=== PATIENT | female | born 1950 | race Caucasian/White ===

== ENCOUNTER 2017-09-02 05:32 | Inpatient (IN) | payer MEDICARE, OTHER ==
--- NOTE | 2017-09-02 06:04 | ED ---
General Adult HPI - General Chief complaint: Shortness of Breath Stated complaint: SOB Time Seen by Provider: 09/02/17 05:35 Source: patient, family, RN notes reviewed Mode of arrival: ambulatory Limitations: no limitations - History of Present Illness Initial comments: This a 67-year-old female who presents emergency Department complaining of cold- like symptoms last few days however today when she went to bed and laid down she had significant chest pressure and associated difficulty breathing. Patient states when she got up and out of bed the chest pressure seemed to relieve relatively quickly but the difficulty breathing last for at least 15 minutes. Patient states this is what brought her into the hospital not the cold -like symptoms. Patient denies any fever chills. Patient states she has had quite a bit of congestion. Patient denies any abdominal pain patient denies nausea vomiting diarrhea. Patient denies any headache. Patient denies any lightheadedness dizziness or nursing about so. - Related Data Home Medications Medication Instructions Recorded Confirmed Sertraline HCl [Zoloft] 100 mg PO HS 08/05/14 09/02/17 Simvastatin [Zocor] 20 mg PO HS 08/05/14 09/02/17 rOPINIRole HCL [Requip] 1 mg PO HS 08/05/14 09/02/17 Doxycycline [Vibramycin] 50 mg PO HS 09/02/17 09/02/17 Levothyroxine Sodium [Synthroid] 112 mcg PO HS 09/02/17 09/02/17 NIFEdipine [Procardia XL] 60 mg PO HS 09/02/17 09/02/17 Allergies Allergy/AdvReac Type Severity Reaction Status Date / Time adhesive AdvReac Rash/Hives Verified 09/02/17 08:52 Review of Systems ROS Statement: Those systems with pertinent positive or pertinent negative responses have been documented in the HPI. ROS Other: All systems not noted in ROS Statement are negative. Past Medical History Past Medical History: Hypertension History of Any Multi-Drug Resistant Organisms: None Reported Past Surgical History: Appendectomy, Orthopedic Surgery, Tonsillectomy Past Psychological History: No Psychological Hx Reported Smoking Status: Never smoker Past Alcohol Use History: None Reported Past Drug Use History: None Reported - Past Family History Mother Additional Family Medical History / Comment(s): colon CA General Exam - General Exam Comments Initial Comments: GENERAL: Patient is well-developed and well-nourished. Patient is nontoxic and well- hydrated and is in mild distress. ENT: Neck is soft and supple. No significant lymphadenopathy is noted. Oropharynx is clear. Moist mucous membranes. Neck has full range of motion without eliciting any pain. EYES: The sclera were anicteric and conjunctiva were pink and moist. Extraocular movements were intact and pupils were equal round and reactive to light. Eyelids were unremarkable. PULMONARY: Unlabored respirations. Good breath sounds bilaterally. No audible rales rhonchi or wheezing was noted. CARDIOVASCULAR: There is a regular rate and rhythm without any murmurs gallops or rubs. ABDOMEN: Soft and nontender with normal bowel sounds. No palpable organomegaly was noted. There is no palpable pulsatile mass. SKIN: Skin is clear with no lesions or rashes and otherwise unremarkable. NEUROLOGIC: Patient is alert and oriented x3. Cranial nerves II through XII are grossly intact. Motor and sensory are also intact. Normal speech, volume and content. Symmetrical smile. MUSCULOSKELETAL: Normal extremities with adequate strength and full range of motion. No lower extremity swelling or edema. No calf tenderness. LYMPHATICS: No significant lymphadenopathy is noted PSYCHIATRIC: Normal psychiatric evaluation. Limitations: no limitations Course Vital Signs 09/02/17 09/02/17 09/02/17 05:33 07:10 08:23 Temperature 97.6 F 99.2 F Pulse Rate 99 90 87 Respiratory 18 16 18 Rate Blood Pressure 174/89 143/84 138/72 O2 Sat by Pulse 95 97 93 L Oximetry 09/02/17 09/02/17 09:00 14:20 Temperature 98.2 F Pulse Rate 89 94 Respiratory 16 16 Rate Blood Pressure 172/92 140/83 O2 Sat by Pulse 93 L 95 Oximetry Medical Decision Making - Medical Decision Making EKG shows normal sinus rhythm at 90 bpm GA interval is on a 58 QRSs 82 QT interval 400 QTC is 489. Patient's EKG shows no ST segment elevation or depression or T wave abnormalities are noted. Patient had an elevated d-dimer so I ordered a CAT scan. Dr. Anand will be taking over care of this patient at 7 AM - Lab Data Result diagrams: 09/03/17 06:32 09/03/17 06:32 Lab Results 09/02/17 09/02/17 09/02/17 Range/Units 05:55 05:55 05:55 WBC 5.6 (3.8-10.6) k/uL RBC 4.69 (3.80-5.40) m/uL Hgb 13.3 (11.4-16.0) gm/dL Hct 40.1 (34.0-46.0) % MCV 85.5 (80.0-100.0) fL MCH 28.4 (25.0-35.0) pg MCHC 33.2 (31.0-37.0) g/dL RDW 13.9 (11.5-15.5) % Plt Count 251 (150-450) k/uL Neutrophils % 69 % Lymphocytes % 18 % Monocytes % 7 % Eosinophils % 3 % Basophils % 1 % Neutrophils # 3.9 (1.3-7.7) k/uL Lymphocytes # 1.0 (1.0-4.8) k/uL Monocytes # 0.4 (0-1.0) k/uL Eosinophils # 0.2 (0-0.7) k/uL Basophils # 0.0 (0-0.2) k/uL PT (9.0-12.0) sec INR (<1.2) APTT (22.0-30.0) sec D-Dimer (<0.60) mg/L FEU Sodium 143 (137-145) mmol/L Potassium 4.2 (3.5-5.1) mmol/L Chloride 103 (98-107) mmol/L Carbon Dioxide 27 (22-30) mmol/L Anion Gap 13 mmol/L BUN 18 H (7-17) mg/dL Creatinine 0.68 (0.52-1.04) mg/dL Est GFR (MDRD) Af Amer >60 (>60 ml/min/1.73 sqM) Est GFR (MDRD) Non-Af >60 (>60 ml/min/1.73 sqM) Glucose 99 (74-99) mg/dL Calcium 9.2 (8.4-10.2) mg/dL Magnesium 2.0 (1.6-2.3) mg/dL Total Bilirubin 0.4 (0.2-1.3) mg/dL AST 27 (14-36) U/L ALT 33 (9-52) U/L Alkaline Phosphatase 119 (38-126) U/L Total Creatine Kinase 101 (30-135) U/L CK-MB (CK-2) 0.8 (0.0-2.4) ng/mL CK-MB (CK-2) Rel Index 0.8 Troponin I <0.012 (0.000-0.034) ng/mL NT-Pro-B Natriuret Pep pg/mL Total Protein 7.6 (6.3-8.2) g/dL Albumin 4.4 (3.5-5.0) g/dL 09/02/17 09/02/17 Range/Units 05:55 05:55 WBC (3.8-10.6) k/uL RBC (3.80-5.40) m/uL Hgb (11.4-16.0) gm/dL Hct (34.0-46.0) % MCV (80.0-100.0) fL MCH (25.0-35.0) pg MCHC (31.0-37.0) g/dL RDW (11.5-15.5) % Plt Count (150-450) k/uL Neutrophils % % Lymphocytes % % Monocytes % % Eosinophils % % Basophils % % Neutrophils # (1.3-7.7) k/uL Lymphocytes # (1.0-4.8) k/uL Monocytes # (0-1.0) k/uL Eosinophils # (0-0.7) k/uL Basophils # (0-0.2) k/uL PT 9.7 (9.0-12.0) sec INR 1.0 (<1.2) APTT 25.8 (22.0-30.0) sec D-Dimer 0.92 H (<0.60) mg/L FEU Sodium (137-145) mmol/L Potassium (3.5-5.1) mmol/L Chloride (98-107) mmol/L Carbon Dioxide (22-30) mmol/L Anion Gap mmol/L BUN (7-17) mg/dL Creatinine (0.52-1.04) mg/dL Est GFR (MDRD) Af Amer (>60 ml/min/1.73 sqM) Est GFR (MDRD) Non-Af (>60 ml/min/1.73 sqM) Glucose (74-99) mg/dL Calcium (8.4-10.2) mg/dL Magnesium (1.6-2.3) mg/dL Total Bilirubin (0.2-1.3) mg/dL AST (14-36) U/L ALT (9-52) U/L Alkaline Phosphatase (38-126) U/L Total Creatine Kinase (30-135) U/L CK-MB (CK-2) (0.0-2.4) ng/mL CK-MB (CK-2) Rel Index Troponin I (0.000-0.034) ng/mL NT-Pro-B Natriuret Pep 49 pg/mL Total Protein (6.3-8.2) g/dL Albumin (3.5-5.0) g/dL Disposition Disposition: ADMITTED IP TO THIS HOSP
[2017-09-02 06:14] LABS: Basophils % (A) 1 %; Eosinophils # (A) 0.2 k/uL (0-0.7); Eosinophils % (A) 3 %; HCT 40.1 % (34.0-46.0); HGB 13.3 gm/dL (11.4-16.0); Lymphocytes % (A) 18 %; MCH 28.4 pg (25.0-35.0); MCHC 33.2 g/dL (31.0-37.0); MCV 85.5 fL (80.0-100.0); Mean Platelet Volume 6.6; Monocytes # (A) 0.4 k/uL (0-1.0); Monocytes % (A) 7 %; Neutrophils # (A) 3.9 k/uL (1.3-7.7); Neutrophils % (A) 69 %; Platelet Count 251 k/uL (150-450); RBC 4.69 m/uL (3.80-5.40); RDW 13.9 % (11.5-15.5); WBC 5.6 k/uL (3.8-10.6)
[2017-09-02 06:23] LABS: ALT 33 U/L (9-52); AST 27 U/L (14-36); Albumin 4.4 g/dL (3.5-5.0); Alkaline Phosphatase 119 U/L (38-126); Anion Gap 13 mmol/L; Blood Urea Nitrogen 18 mg/dL (7-17); Calcium 9.2 mg/dL (8.4-10.2); Carbon Dioxide 27 mmol/L (22-30); Chloride 103 mmol/L (98-107); Glucose 99 mg/dL (74-99); Potassium 4.2 mmol/L (3.5-5.1); Sodium 143 mmol/L (137-145); Total Bilirubin 0.4 mg/dL (0.2-1.3); Total Protein 7.6 g/dL (6.3-8.2)
[2017-09-02 06:25] LABS: D-Dimer 0.92 mg/L FEU (<0.60); Partial Thromboplastin Time 25.8 sec (22.0-30.0); Prothrombin Time 9.7 sec (9.0-12.0)
[2017-09-02 06:34] LABS: Creatine Kinase 101 U/L (30-135)
--- NOTE | 2017-09-02 06:47 | XR ---
EXAM: XR Chest, 2 Views CLINICAL HISTORY: ITS.REASON XR Reason: difficulty breathing TECHNIQUE: Frontal and lateral views of the chest. COMPARISON: CT chest dated 09/23/2014. FINDINGS: Lungs: Questionable mildly prominent perihilar opacities may represent minimal congestion. The lungs are otherwise clear. Pleural space: Unremarkable. No pneumothorax. Heart: Unremarkable. No cardiomegaly. Mediastinum: See above. Bones/joints: Mild degenerative changes of the thoracic spine. IMPRESSION: Questionable mildly prominent perihilar opacities may represent minimal congestion.
[2017-09-02 06:48] LABS: Creatine Kinase MB 0.8 ng/mL (0.0-2.4); Troponin I <0.012 ng/mL (0.000-0.034)
[2017-09-02] MEDS ORDERED: RX INFO: IV CONTRAST WAS GIVEN 1 EACH MISC MISCELLANE PRN (06:51)
--- NOTE | 2017-09-02 07:34 | CT ---
CT CHEST FOR PULMONARY EMBOLISM. EXAMINATION TYPE: CT chest angio for PE DATE OF EXAM: 09/02/2017 INDICATION: SOB, cough, elevated d dimer, pain CT DLP: 768.9 mGycm, Automated exposure control for dose reduction was used. CONTRAST: Patient injected with 100 mL of Omnipaque 350. COMPARISON: NONE TECHNIQUE: CT of the chest is performed on a spiral scan at 2 mm thick sections. Study is performed with intravenous contrast timed for evaluation for pulmonary embolism. This will limit additional po rtions of the evaluation. 3-D MIP images reconstructed by the technologist are reviewed on the compu ter in the coronal and sagittal planes. FINDINGS: Contrast timing is suboptimal causing some limitation small distal pulmonary emboli. No persistent filling defects are evident to suggest an acute pulmonary embolism. No mediastinal or hilar adenopathy enlarged by CT criteria is evident. The ascending aorta diameter at the level of the main pulmonary artery is 3.7 cm. The main pulmonary artery diameter at the bifur cation is 2.8 cm. There is a patchy infiltrate within the right middle lobe. Correlate for pneumonia. There is streak o pacity in the posterior left base. Correlate for atelectasis or pneumonia. Limited CT section through the upper abdomen are unremarkable. IMPRESSIONS: 1. No acute pulmonary emboli. There is some limitation due to contrast timing and smaller pulmonary e mboli may not be appreciated. 2. Patchy infiltrate within the right middle lobe and some streak opacity in the left lower lobe. Cor relate for pneumonia.
[2017-09-02] MEDS ORDERED: HEPARIN SODIUM,PORCINE 5,000 UNIT/ML 1 ML VIAL IV PRN (08:20)
[2017-09-02] MEDS ORDERED: MORPHINE SULFATE 4 MG/ML SYRINGE IV PRN (08:20)
[2017-09-02] MEDS ORDERED: HEPARIN SODIUM,PORCINE 5,000 UNIT/ML 1 ML VIAL IV ONE (08:20)
[2017-09-02] MEDS ORDERED: NITROGLYCERIN SL TABS 0.4 MG TAB SUBLINGUAL PRN (08:20)
[2017-09-02] MEDS ORDERED: ASPIRIN 81 MG PO STA (08:20)
[2017-09-02] MEDS ORDERED: PNEUMONIA PROTOCOL UTILIZED 1 EACH MISC PO PRN (08:22)
[2017-09-02] MEDS ORDERED: IPRATROPIUM-ALBUTEROL 3 ML NEB INHALATION PRN (08:22)
[2017-09-02] MEDS ORDERED: LEVOFLOXACIN 750MG-D5W PMX 750 MG in DEXTROSE/WATER 1 150ML.BAG IVPB STA (08:22)
[2017-09-02] MEDS ORDERED: HEPARIN SOD,PORK IN 0.45% NACL 25,000 UNIT in 0.45% NACL 1 500ML.BAG IV SCH (08:30)
[2017-09-02] MEDS: SODIUM CHLORIDE 0.9% 1,000 ML IV SCH (08:42)
[2017-09-02] MEDS ORDERED: ACETAMINOPHEN TAB 500 MG TAB PO STA (09:29)
[2017-09-02 12:07] LABS: Creatine Kinase 90 U/L (30-135)
[2017-09-02 12:21] LABS: Creatine Kinase MB 0.7 ng/mL (0.0-2.4); Troponin I <0.012 ng/mL (0.000-0.034)
[2017-09-02 15:44] VITALS: BMI 52.9
[2017-09-02 18:04] LABS: Creatine Kinase 97 U/L (30-135)
[2017-09-02 18:17] LABS: Creatine Kinase MB 0.8 ng/mL (0.0-2.4); Troponin I <0.012 ng/mL (0.000-0.034)
[2017-09-02] MEDS ORDERED: FUROSEMIDE 10 MG/ML 2 ML VIAL IV ONE (18:54)
[2017-09-02] MEDS ORDERED: FUROSEMIDE 10 MG/ML 4 ML VIAL IV STA (19:01)
[2017-09-02] MEDS: ACETAMINOPHEN TAB 325 MG TAB PO PRN (20:01)
[2017-09-02] MEDS: ATORVASTATIN 10 MG TAB PO SCH (20:25)
[2017-09-02] MEDS: DOXYCYCLINE 50 MG CAP PO SCH (20:25)
[2017-09-02] MEDS: SERTRALINE 100 MG TAB PO SCH (20:25)
[2017-09-02] MEDS: LEVOTHYROXINE 112 MCG TAB PO SCH (20:25)
[2017-09-02] MEDS: HEPARIN SODIUM,PORCINE 5,000 UNIT/ML 1 ML VIAL SQ SCH (20:26)
[2017-09-02] MEDS: MELATONIN 3 MG TABLET PO SCH (21:45)
--- NOTE | 2017-09-02 23:05 | P.HPIM ---
History of Present Illness H&P Date: 09/02/17 Chief Complaint: Chest tightness and shortness of breath Patient is a 67-year-old female with known history of hypertension, hyperlipidemia and hypothyroidism came to ER with complaints of chest congestion and cold-like symptoms started around 2 AM in the morning since then she's been having constant chest pressure associated with difficulty in breathing. Patient was also having severe shortness of breath when she was going to the bathroom. Chest tightness lasted for about 15 minutes. Otherwise denied any fever or chills. Patient says that she was having cold-like symptoms yesterday evening. Otherwise patient denied any pain radiation. No nausea vomiting or abdominal pain. No headache or dizziness or lightheadedness. No orthopnea no PND. Denied any leg swelling. Chest x-ray showed prominent perihilar opacities with possible congestion D-dimer is slightly elevated CTA is negative for any pulmonary embolism BNP 49 Review of Systems Constitutional: Patient denies any fever or chills . No generalized weakness or weight loss. Abdomen: Patient denied nausea vomiting and diarrhea and abdominal pain. Cardiovascular: Does have chest tightness and shortness of breath and congestion. No palpitations no leg swelling Respiratory: patient denied any cough is from production. No shortness of breath Neurologic: Patient denied any numbness or tingling headache. Musculoskeletal: Patient denies any complaints of joint swelling or deformity. Skin: Negative Psychiatric: Negative Endocrine: No heat or cold intolerance. No recent weight gain. Genitourinary: No dysuria or hematuria. All other 14 point ROS negative except the above Past Medical History Past Medical History: Hyperlipidemia, Hypertension, Thyroid Disorder Additional Past Medical History / Comment(s): rosacea History of Any Multi-Drug Resistant Organisms: None Reported Past Surgical History: Appendectomy, Orthopedic Surgery, Tonsillectomy Additional Past Surgical History / Comment(s): bilateral knee replacement Past Anesthesia/Blood Transfusion Reactions: No Reported Reaction Past Psychological History: No Psychological Hx Reported Smoking Status: Never smoker Past Alcohol Use History: None Reported Past Drug Use History: None Reported - Past Family History Mother Additional Family Medical History / Comment(s): colon CA Medications and Allergies Home Medications Medication Instructions Recorded Confirmed Type Sertraline HCl [Zoloft] 100 mg PO HS 08/05/14 09/02/17 History Simvastatin [Zocor] 20 mg PO HS 08/05/14 09/02/17 History rOPINIRole HCL [Requip] 1 mg PO HS 08/05/14 09/02/17 History Doxycycline [Vibramycin] 50 mg PO HS 09/02/17 09/02/17 History Levothyroxine Sodium [Synthroid] 112 mcg PO HS 09/02/17 09/02/17 History NIFEdipine [Procardia XL] 60 mg PO HS 09/02/17 09/02/17 History Allergies Allergy/AdvReac Type Severity Reaction Status Date / Time adhesive AdvReac Rash/Hives Verified 09/02/17 08:52 Physical Exam Vitals: Vital Signs Temp Pulse Pulse Resp BP BP Pulse Ox 09/02/17 18:16 90 09/02/17 18:05 99.5 F 112 H 18 159/83 90 L 09/02/17 16:15 88 09/02/17 14:33 98.8 F 87 18 148/74 91 L 09/02/17 14:20 98.2 F 94 16 140/83 95 09/02/17 09:00 89 16 172/92 93 L 09/02/17 08:23 87 18 138/72 93 L 09/02/17 07:10 99.2 F 90 16 143/84 97 09/02/17 05:33 97.6 F 99 18 174/89 95 Intake and Output 09/02/17 09/02/17 09/02/17 06:59 14:59 22:59 Other: Weight 127.006 kg 127.006 kg Patient Weight 09/03/17 06:59 Weight 127.006 kg PHYSICAL EXAMINATION: Patient is lying in the bed comfortably, no acute distress, awake alert and oriented.. Patient Does have morbid obesity HEENT: Normocephalic. Neck is supple. Pupils reactive. Nostrils clear. Oral cavity is moist. Ears reveal no drainage. Neck reveals no JVD, carotid bruits, or thyromegaly. CHEST EXAMINATION: Trachea is central. Symmetrical expansion. Patient does have diminished breath sounds basally. Minimal rhonchi at right base. Nonlabored breathing CARDIAC: Normal S1, S2 with no gallops. No murmurs ABDOMEN: Soft. Bowel sounds normal. No organomegaly. No abdominal bruits. Extremities: reveal no edema. No clubbing or cyanosis Neurologically awake, alert, oriented x3 with well-coordinated movements. No focal deficits noted Skin: No rash or skin lesions. Psychiatric: Cooperative. Nonsuicidal Musculoskeletal: No joint swelling or deformity. Normal range of motion. Results CBC & Chem 7: 09/02/17 05:55 09/02/17 05:55 Labs: Abnormal Lab Results - Last 24 Hours (Table) 09/02/17 09/02/17 Range/Units 05:55 05:55 D-Dimer 0.92 H (<0.60) mg/L FEU BUN 18 H (7-17) mg/dL Thrombosis Risk Factor Assmnt - DVT/VTE Prophylaxis DVT/VTE Prophylaxis: Pharmacologic Prophylaxis ordered - Choose All That Apply Any of the Below Risk Factors Present?: Yes Each Factor Represents 1 point: Obesity (BMI >25) Other Risk Factors: Yes Each Risk Factor Represents 2 Points: Age 61-74 years Thrombosis Risk Factor Assessment Total Risk Factor Score: 3 Thrombosis Risk Factor Assessment Level: Moderate Risk Assessment and Plan Assessment: Atypical chest pain. Ruled out acute coronary syndrome Chest congestion and shortness of breath possible due to viral illness Right middle lobe and left lower lobe pneumonia Morbid obesity BMI 52.9 Hypertension Hyperlipidemia Hypothyroidism DVT prophylaxis Plan: Patient will be continued on telemetry monitoring. Serial EKG and troponin negative. BNP is 49. Unlikely patient is having congestive heart failure. Patient will be given Lasix 40 mg IV 1. Will hold IV fluids and continued with the antibiotics in the form of levofloxacin. We will obtain influenza PCR. Continue the home medications and follow up closely. Further recommendations based on the clinical course. Time with Patient: Greater than 30
[2017-09-03] MEDS: SODIUM CHLORIDE 0.9% 1,000 ML IV SCH (04:46)
[2017-09-03] MEDS: ACETAMINOPHEN TAB 325 MG TAB PO PRN (04:47)
[2017-09-03] MEDS: LORATADINE 10 MG TAB PO SCH (07:01)
[2017-09-03 07:04] LABS: Basophils % (A) 1 %; Eosinophils # (A) 0.1 k/uL (0-0.7); Eosinophils % (A) 2 %; HCT 38.9 % (34.0-46.0); HGB 12.7 gm/dL (11.4-16.0); Lymphocytes # (A) 0.8 k/uL (1.0-4.8); Lymphocytes % (A) 20 %; MCHC 32.6 g/dL (31.0-37.0); MCV 88.7 fL (80.0-100.0); Mean Platelet Volume 6.5; Monocytes # (A) 0.3 k/uL (0-1.0); Monocytes % (A) 8 %; Neutrophils # (A) 2.9 k/uL (1.3-7.7); Neutrophils % (A) 67 %; Platelet Count 248 k/uL (150-450); RBC 4.38 m/uL (3.80-5.40); RDW 13.6 % (11.5-15.5); WBC 4.3 k/uL (3.8-10.6)
--- NOTE | 2017-09-03 07:12 | XR ---
EXAMINATION TYPE: XR chest 2V DATE OF EXAM: 09/03/2017 COMPARISON: Chest x-ray and CTA chest from yesterday. HISTORY: Pneumonia progress study. TECHNIQUE: Frontal and lateral views of the chest are obtained. FINDINGS: There there are persistent patchy infiltrates right suprahilar level. More focal small are a of consolidation left lower lobe posteriorly is less well-seen on x-ray. No new focal airspace opac ity, pleural effusion, or pneumothorax is evident. The cardiac silhouette size is within normal limit s. Degenerative changes bilateral shoulders is redemonstrated. IMPRESSION: Persistent patchy right suprahilar infiltrate, posterior left lower lobe infiltrate on C T less well seen. No new infiltrate is evident.
[2017-09-03 07:32] LABS: Anion Gap 11 mmol/L; Blood Urea Nitrogen 8 mg/dL (7-17); Calcium 8.5 mg/dL (8.4-10.2); Carbon Dioxide 28 mmol/L (22-30); Chloride 103 mmol/L (98-107); Cholesterol 145 mg/dL (<200); Glucose 108 mg/dL (74-99); HDL Cholesterol 54 mg/dL (40-60); LDL Cholesterol,Calculated 71 mg/dL (0-99); Potassium 3.7 mmol/L (3.5-5.1); Sodium 142 mmol/L (137-145); Triglycerides 99 mg/dL (<150)
[2017-09-03] MEDS ORDERED: ASPIRIN 325 MG TAB PO SCH (09:00)
[2017-09-03] MEDS ORDERED: LEVOFLOXACIN 750MG-D5W PMX 750 MG in DEXTROSE/WATER 1 150ML.BAG IVPB SCH (09:00)
[2017-09-03] MEDS: HEPARIN SODIUM,PORCINE 5,000 UNIT/ML 1 ML VIAL SQ SCH ×2 (09:32→20:50)
--- NOTE | 2017-09-03 13:31 | P.CRDCN ---
History of Present Illness Consult date: 09/03/17 Consult reason: chest pain, shortness of breath History of present illness: Mrs. Prado is a pleasant 67-year-old female past medical history significant for hypertension and morbid obesity. She denies history of coronary artery disease and has never seen a lorry weigher for any reason. We have been asked to see her in consultation for complaints of chest pain. She states Sunday night into Sunday morning around 0200 she was trying to lay down and get some sleep when she became extremely short of breath. Soon after she developed a pressure on her chest that felt like an elephant sitting on her chest. Once she stood up from bed the pain went away but she remained mildly short of breath for approximately 15 minutes. She also complains of cough and congetsion. She states her has been sick with cough and congestion at home as well. Her shortness of breath has significantly improved she believes to be secondary to oxygen. She feels like once oxygen was applied she felt much better. She is being treated with IV antibiotics for right middle lobe pneumonia. EKG on arrival reveals sinus mechanism with no acute ST or T-wave abnormalities. Chest xray on admission questionable mildly prominent perihilar opacities may represent minimal congestion. Repeat this morning continues to show persistent patchy right superhilar infiltrate with posterior left lower lobe infiltrate. CTA was performed reveals no evidence of PE. Patchy infiltrate within right middle lobe and some streak opacity in the left lower lobe. Correlate for pneumonia. Laboratory data reviewed, hemoglobin 12.7, platelets 248, potassium 3.7, magnesium 2.0, d-dimer 0.92, cardiac enzymes negative 3, proBNP 49, TSH 1.37, LDL 71. Influenza screens negative. Current cardiac medications include nifedipine 60 mg daily and simvastatin 20 mg daily. No old diagnostic cardiac testing to review. Review of Systems At the time of my exam: CONSTITUTIONAL: Denies fever. Denies chills. EYES: Denies blurred vision. Denies vision changes. Denies eye pain. EARS, NOSE, MOUTH & THROAT: Denies headache. Denies sore throat. Denies ear pain. CARDIOVASCULAR: Denies chest pain. Denies shortness of breath. Denies orthopnea. Denies PND. Denies palpitations. RESPIRATORY: Complains of cough. GASTROINTESTINAL: Denies abdominal pain. Denies diarrhea. Denies constipation. Denies nausea. Denies vomiting. MUSCULOSKELETAL: Denies myalgias. INTEGUMENTARY: Denies pruitis. Denies rash. NEUROLOGIC: Denies numbness. Denies tingling. Denies weakness. PSYCHIATRIC: Denies anxiety. Denies depression. ENDOCRINE: Denies fatigue. Denies weight change. Denies polydipsia. Denies polyurina. GENITOURINARY: Denies burning, hematuria or urgency with micturation. HEMATOLOGIC: Denies history of anemia. Denies bleeding. Past Medical History Past Medical History: Hypertension Additional Past Medical History / Comment(s): rosacea History of Any Multi-Drug Resistant Organisms: None Reported Past Surgical History: Appendectomy, Orthopedic Surgery, Tonsillectomy Additional Past Surgical History / Comment(s): bilateral knee replacement Past Anesthesia/Blood Transfusion Reactions: No Reported Reaction Past Psychological History: No Psychological Hx Reported Smoking Status: Never smoker Past Alcohol Use History: None Reported Past Drug Use History: None Reported - Past Family History Mother Additional Family Medical History / Comment(s): colon CA Medications and Allergies Home Medications Medication Instructions Recorded Confirmed Type Sertraline HCl [Zoloft] 100 mg PO HS 08/05/14 09/02/17 History Simvastatin [Zocor] 20 mg PO HS 08/05/14 09/02/17 History rOPINIRole HCL [Requip] 1 mg PO HS 08/05/14 09/02/17 History Doxycycline [Vibramycin] 50 mg PO HS 09/02/17 09/02/17 History Levothyroxine Sodium [Synthroid] 112 mcg PO HS 09/02/17 09/02/17 History NIFEdipine [Procardia XL] 60 mg PO HS 09/02/17 09/02/17 History Loratadine [Claritin] 10 mg PO DAILY tab 09/03/17 Rx Allergies Allergy/AdvReac Type Severity Reaction Status Date / Time adhesive AdvReac Rash/Hives Verified 09/02/17 08:52 Physical Exam Vitals: Vital Signs Temp Pulse Pulse Pulse Resp BP BP 09/03/17 04:00 99.2 F 70 17 155/87 09/03/17 00:00 98.5 F 82 17 135/77 09/02/17 20:00 18 09/02/17 18:16 90 09/02/17 18:05 99.5 F 112 H 18 159/83 09/02/17 16:15 88 09/02/17 14:33 98.8 F 87 18 148/74 09/02/17 14:20 98.2 F 94 16 140/83 09/02/17 09:00 89 16 172/92 Pulse Ox 09/03/17 04:00 90 L 09/03/17 00:00 92 L 09/02/17 20:00 09/02/17 18:16 09/02/17 18:05 90 L 09/02/17 16:15 09/02/17 14:33 91 L 09/02/17 14:20 95 09/02/17 09:00 93 L Intake and Output 09/02/17 09/03/17 09/03/17 22:59 06:59 14:59 Other: Voiding Method Toilet Toilet # Voids 2 3 Weight 127.006 kg Blood pressure 155/87 heart rate 70 afebrile maintaining oxygen saturations on oxygen nasal via cannula GENERAL: This is a 67-year-old female in no apparent distress at the time of my examination. Morbidly obese. HEENT: Head is atraumatic, normocephalic. Pupils are equal, round. Sclerae anicteric. Conjunctivae are clear. Mucous membranes of the mouth are moist. Neck is supple. There is no jugular venous distention. No carotid bruit is heard. LUNGS: Clear to auscultation no wheezes, rales or rhonchi. No chest wall tenderness is noted on palpation or with deep breathing. Diminished b/l. HEART: Regular rate and rhythm without murmurs, rubs or gallops. S1 and S2 heard. ABDOMEN: Soft, nontender. Bowel sounds are heard. No organomegaly noted. EXTREMITIES: No evidence of peripheral edema and no calf tenderness noted. VASCULAR: Radial and dorsalis pedis pulses palpated, no evidence of clubbing. NEUROLOGIC: Patient is awake, alert and oriented x3. Results 09/03/17 06:32 09/03/17 06:32 Cardiac Enzymes 09/02/17 09/02/17 Range/Units 11:25 17:27 CK-MB (CK-2) 0.7 0.8 (0.0-2.4) ng/mL Troponin I <0.012 <0.012 (0.000-0.034) ng/mL Coagulation 09/03/17 Range/Units 02:50 APTT 27.0 (22.0-30.0) sec Lipids 09/03/17 Range/Units 06:32 Triglycerides 99 (<150) mg/dL Cholesterol 145 (<200) mg/dL HDL Cholesterol 54 (40-60) mg/dL CBC 09/03/17 Range/Units 06:32 WBC 4.3 (3.8-10.6) k/uL RBC 4.38 (3.80-5.40) m/uL Hgb 12.7 (11.4-16.0) gm/dL Hct 38.9 (34.0-46.0) % Plt Count 248 (150-450) k/uL Comprehensive Metabolic Panel 09/03/17 Range/Units 06:32 Sodium 142 (137-145) mmol/L Potassium 3.7 (3.5-5.1) mmol/L Chloride 103 (98-107) mmol/L Carbon Dioxide 28 (22-30) mmol/L BUN 8 (7-17) mg/dL Creatinine 0.56 (0.52-1.04) mg/dL Glucose 108 H (74-99) mg/dL Calcium 8.5 (8.4-10.2) mg/dL Current Medications Generic Name Dose Route Start Last Admin Trade Name Freq PRN Reason Stop Dose Admin Acetaminophen 650 mg 09/02/17 19:40 09/03/17 04:47 Tylenol Tab PO 650 mg Q4HR PRN Administration Fever and/ or Mild Pain Albuterol/Ipratropium 3 ml 09/02/17 08:22 09/02/17 16:14 Duoneb 0.5 Mg-3 Mg/3 Ml Soln INHALATION 3 ml RT-Q4H PRN Administration shortness of breath Aspirin 325 mg 09/03/17 09:00 Aspirin PO DAILY [facility] Atorvastatin Calcium 10 mg 09/02/17 21:00 09/02/17 20:25 Lipitor PO 10 mg HS [place] Administration Doxycycline Monohydrate 50 mg 09/02/17 21:00 09/02/17 20:25 Vibramycin PO 50 mg HS [place] Administration Heparin Sodium (Porcine) 5,000 unit 09/02/17 21:00 09/02/17 20:26 Heparin SQ 5,000 unit Q12HR [place] Administration Levofloxacin 750 mg/ IV 150 mls @ 100 mls/hr 03/05/18 09:00 Solution IVPB 09/15/17 09:01 Q24H [place] Levothyroxine Sodium 112 mcg 09/02/17 21:00 09/02/17 20:25 Synthroid PO 112 mcg HS [place] Administration Loratadine 10 mg 09/03/17 09:00 09/03/17 07:01 Claritin PO 10 mg DAILY [place] Administration Melatonin 3 mg 09/02/17 21:00 09/02/17 21:45 Melatonin PO 3 mg HS [place] Administration Miscellaneous Information 1 each 09/02/17 06:51 09/02/17 06:55 Rx Info: Iv Contrast Was Given MISCELLANE 09/04/17 06:51 1 each DAILY PRN Administration Per Protocol Miscellaneous Information 1 each 09/02/17 08:22 Pneumonia Protocol Utilized PO ONCE PRN Per Protocol Morphine Sulfate 4 mg 09/02/17 08:20 Morphine Sulfate (Inj) IV Q5M PRN Chest Pain Nifedipine 60 mg 09/02/17 21:00 09/02/17 20:25 Procardia Xl PO 60 mg HS [place] Administration Nitroglycerin 0.4 mg 09/02/17 08:20 Nitrostat SUBLINGUAL Q5M PRN Chest Pain Ropinirole HCl 1 mg 09/02/17 21:00 09/02/17 20:25 Requip PO 1 mg HS [place] Administration Sertraline HCl 100 mg 09/02/17 21:00 09/02/17 20:25 Zoloft PO 100 mg HS [place] Administration Intake and Output 09/02/17 09/03/17 09/03/17 22:59 06:59 14:59 Other: Voiding Method Toilet Toilet # Voids 2 3 Weight 127.006 kg 09/03/17 06:32 09/03/17 06:32 Assessment and Plan Assessment: ASSESSMENT 1. Chest pain, atypical. An acute coronary event has been ruled out with negative cardiac enzymes and no EKG evidence of ischemia. 2. Shortness of breath, improved with oxygen administration 3. Right lobe pneumonia, currently receiving IV antibiotics. 4. Hypertension 5. Dyslipidemia, maintained on simvastatin 6. Morbid obesity PLAN Obtain 2D echocardiogram and doppler study to assess cardiac structure and function. Initiate her on aspirin 81 mg to her daily regimen. Continue with medical management of pneumonia. Clinically she does not seem to have any component of heart failure with normal proBNP, no lower extremity edema, no rales on exam and no evidence of heart failure on chest xray. No further cardiac work-up during this admission, however recommend stress testing as an outpatient once pulmonary condition has resolved. Thank you kindly for this consultation. Nurse Practitioner note has been reviewed, I agree with a documented findings and plan of care. Patient was seen and examined.
[2017-09-03] MEDS ORDERED: MORPHINE ORAL SOLN 10 MG/5 ML CUP PO PRN (14:06)
--- NOTE | 2017-09-03 18:30 | ECHOF ---
Referral Reason:chest pain MEASUREMENTS -------- HEIGHT: 152.4 cm WEIGHT: 127.0 kg BP: 134/63 RVIDd: 3.1 cm (< 3.3) IVSd: 1.3 cm (0.6 - 1.1) LVIDd: 4.9 cm (3.9 - 5.3) LVPWd: 1.0 cm (0.6 - 1.1) IVSs: 1.3 cm LVIDs: 3.7 cm LVPWs: 1.0 cm LAESV Index (A-L): 24.58 ml/m Ao Diam: 3.1 cm (2.0 - 3.7) AV Cusp: 2.0 cm (1.5 - 2.6) LA Diam: 4.0 cm (2.7 - 3.8) MV EXCURSION: 16.790 mm (> 18.000) MV EF SLOPE: 56 mm/s (70 - 150) EPSS: 0.4 cm MV E Robert: 0.49 m/s MV DecT: 347 ms MV A Robert: 0.78 m/s MV E/A Ratio: 0.64 AR PHT: 645 ms RAP: 5.00 mmHg RVSP: 35.97 mmHg FINDINGS -------- Sinus rhythm. This was a technically adequate study. The left ventricular size is normal. There is mild concentric left ventricular hypertrophy. Overa ll left ventricular systolic function is low-normal with, an EF between 50 - 55 %. The right ventricle is normal in size. Normal LA size by volume 22+/-6 ml/m2. The right atrial size is normal. There is mild aortic valve sclerosis. Trace to mild aortic regurgitation. Mild mitral annular calcification present. Mild mitral regurgitation is present. Mild tricuspid regurgitation present. There is mild pulmonary hypertension. The right ventricular systolic pressure, as measured by Doppler, is 35.97mmHg. Trace/mild (physiologic) pulmonic regurgitation. The aortic root size is normal. Echo free space represents a pericardial fat pad. CONCLUSIONS -------- 1. The left ventricular size is normal. 2. There is mild concentric left ventricular hypertrophy. 3. Overall left ventricular systolic function is low-normal with, an EF between 50 - 55 %. 4. Normal LA size by volume 22+/-6 ml/m2. 5. There is mild aortic valve sclerosis. 6. Trace to mild aortic regurgitation. 7. Mild mitral annular calcification present. 8. Mild mitral regurgitation is present. 9. Mild tricuspid regurgitation present. 10. There is mild pulmonary hypertension. 11. The right ventricular systolic pressure, as measured by Doppler, is 35.97mmHg. 12. Trace/mild (physiologic) pulmonic regurgitation. 13. The aortic root size is normal. 14. Echo free space represents a pericardial fat pad. CEO AND FOUNDER: Anne Rodas RDCS
[2017-09-03] MEDS: ATORVASTATIN 10 MG TAB PO SCH (20:50)
[2017-09-03] MEDS: MELATONIN 3 MG TABLET PO SCH (20:50)
[2017-09-03] MEDS: LEVOTHYROXINE 112 MCG TAB PO SCH (20:50)
[2017-09-03] MEDS: DOXYCYCLINE 50 MG CAP PO SCH (20:50)
[2017-09-03] MEDS: SERTRALINE 100 MG TAB PO SCH (20:54)
[2017-09-04 03:50] VITALS: RESP 18
[2017-09-04 06:44] LABS: Mean Platelet Volume 6.3; Platelet Count 234 k/uL (150-450)
[2017-09-04] MEDS: HEPARIN SODIUM,PORCINE 5,000 UNIT/ML 1 ML VIAL SQ SCH (08:30)
[2017-09-04] MEDS: LORATADINE 10 MG TAB PO SCH (08:30)
[2017-09-04] MEDS ORDERED: ASPIRIN 81 MG PO SCH (09:00)
[2017-09-04] MEDS ORDERED: LEVOFLOXACIN 750 MG TAB PO SCH (09:00)
[2017-09-04 11:37] VITALS: BP 133/60; PULSE 68; TEMP 97.4
--- NOTE | 2017-09-04 23:29 | P.PN ---
Subjective Progress Note Date: 09/03/17 Principal diagnosis: Pneumonia Patient is a 67-year-old female with known history of hypertension, hyperlipidemia and hypothyroidism came to ER with complaints of chest congestion and cold-like symptoms started around 2 AM in the morning since then she's been having constant chest pressure associated with difficulty in breathing. Patient was also having severe shortness of breath when she was going to the bathroom. Chest tightness lasted for about 15 minutes. Otherwise denied any fever or chills. Patient says that she was having cold-like symptoms yesterday evening. Otherwise patient denied any pain radiation. No nausea vomiting or abdominal pain. No headache or dizziness or lightheadedness. No orthopnea no PND. Denied any leg swelling. Chest x-ray showed prominent perihilar opacities with possible congestion D-dimer is slightly elevated CTA is negative for any pulmonary embolism BNP 49 09/03/2017 Patient says that her breathing is better today. Still requiring O2 via nausea cannula. Otherwise clinically is improving. Cardiology recommended no further workup at this time. No cough or production. Patient is being continued on antibiotics for pneumonia. Patient says that she was evaluated for CPAP and sleep study was done previously but could not get CPAP due to insurance issues. No fever no chills. No other acute overnight issues. All other review of systems negative for the above Current medications reviewed Objective - Vital Signs Vital signs: Vital Signs Temp 98.6 F 09/03/17 19:39 Pulse 80 09/03/17 19:39 Resp 16 09/03/17 20:00 BP 137/63 09/03/17 19:39 Pulse Ox 92 L 09/03/17 19:39 Intake & Output 09/03/17 09/03/17 09/04/17 06:59 18:59 06:59 Intake Total 1300 Balance 1300 Intake: Oral 900 Other 400 Other: Voiding Method Toilet Toilet Toilet # Voids 3 - Exam PHYSICAL EXAMINATION: Patient is lying in the bed comfortably, no acute distress, awake alert and oriented.. HEENT: Normocephalic. Neck is supple. Pupils reactive. Nostrils clear. Oral cavity is moist. Ears reveal no drainage. Neck reveals no JVD, carotid bruits, or thyromegaly. CHEST EXAMINATION: Trachea is central. Symmetrical expansion. Lung tompkins clear to auscultation and percussion. Bibasilar diminished air entry no wheezing or rhonchi CARDIAC: Normal S1, S2 with no gallops. No murmurs ABDOMEN: Soft. Bowel sounds normal. No organomegaly. No abdominal bruits. Extremities: reveal no edema. No clubbing or cyanosis Neurologically awake, alert, oriented x3 with well-coordinated movements. No focal deficits noted Skin: No rash or skin lesions. Psychiatric: Coperative. Nonsuicidal Musculoskeletal: No joint swelling or deformity. Normal range of motion. - Labs CBC & Chem 7: 09/04/17 06:16 09/03/17 06:32 Labs: Abnormal Lab Results - Last 24 Hours (Table) 09/03/17 09/03/17 Range/Units 06:32 06:32 Lymphocytes # 0.8 L (1.0-4.8) k/uL Glucose 108 H (74-99) mg/dL Assessment and Plan Assessment: Atypical chest pain. Ruled out acute coronary syndrome Chest congestion and shortness of breath possible due to viral illness Right middle lobe and left lower lobe pneumonia Morbid obesity BMI 52.9 Hypertension Hyperlipidemia Hypothyroidism DVT prophylaxis Plan: Patient will be continued on telemetry monitoring. Serial EKG and troponin negative. BNP is 49. Unlikely patient is having congestive heart failure. Patient will be given Lasix 40 mg IV 1. Will hold IV fluids and continued with the antibiotics in the form of levofloxacin. Negative influenza PCR. Continue the home medications and follow up closely. Further recommendations based on the clinical course.
--- NOTE | 2017-09-04 23:32 | P.DS ---
Providers Date of admission: 09/03/17 15:26 Expected date of discharge: 09/04/17 Attending physician: Flori Sheth Consults: 09/02/17 08:21 Consult Physician Urgent Consulting Provider: Star Yeboah Consult Reason/Comments: cp Do you want consulting provider notified?: Yes Primary care physician: Ana Moore Hospital Course: Discharge diagnosis Atypical chest pain. Ruled out acute coronary syndrome Chest congestion and shortness of breath possible due to viral illness. Improved Right middle lobe and left lower lobe pneumonia Morbid obesity BMI 52.9 Hypertension Hyperlipidemia Hypothyroidism DVT prophylaxis Hospital course Patient is a 67-year-old female with known history of hypertension, hyperlipidemia and hypothyroidism came to ER with complaints of chest congestion and cold-like symptoms started around 2 AM in the morning since then she's been having constant chest pressure associated with difficulty in breathing. Patient was also having severe shortness of breath when she was going to the bathroom. Chest tightness lasted for about 15 minutes. Otherwise denied any fever or chills. Patient says that she was having cold-like symptoms yesterday evening. Otherwise patient denied any pain radiation. No nausea vomiting or abdominal pain. No headache or dizziness or lightheadedness. No orthopnea no PND. Denied any leg swelling. Chest x-ray showed prominent perihilar opacities with possible congestion D-dimer is slightly elevated CTA is negative for any pulmonary embolism BNP 49 09/03/2017 Patient says that her breathing is better today. Still requiring O2 via nausea cannula. Otherwise clinically is improving. Cardiology recommended no further workup at this time. No cough or production. Patient is being continued on antibiotics for pneumonia. Patient says that she was evaluated for CPAP and sleep study was done previously but could not get CPAP due to insurance issues. No fever no chills. No other acute overnight issues. 09/04/2017 Patient's breathing status is much improved today. Saturating at 90-91% with ambulation/exercise. No fever no chills no acute overnight issues. Patient is stable to discharge home. Patient wascontinued on telemetry monitoring. Serial EKG and troponin negative. BNP is 49. Unlikely patient is having congestive heart failure. Patient will be given Lasix 40 mg IV 1. did hold IV fluids and continued with the antibiotics in the form of levofloxacin. Negative influenza PCR. Patient did improve clinically. She was recommended to follow with primary care physician and pulmonary referral for possible sleep study again. Otherwise patient is stable to be discharged home. Discharge physical examination was done and vitals reviewed Patient Condition at Discharge: Stable Plan - Discharge Summary Discharge Rx Participant: Yes New Discharge Prescriptions: New Loratadine [Claritin] 10 mg PO DAILY tab Levofloxacin [Levaquin] 750 mg PO DAILY #5 tab Continue Simvastatin [Zocor] 20 mg PO HS rOPINIRole HCL [Requip] 1 mg PO HS Sertraline HCl [Zoloft] 100 mg PO HS Doxycycline [Vibramycin] 50 mg PO HS Levothyroxine Sodium [Synthroid] 112 mcg PO HS NIFEdipine [Procardia XL] 60 mg PO HS Discharge Medication List Sertraline HCl [Zoloft] 100 mg PO HS 08/05/14 [History] Simvastatin [Zocor] 20 mg PO HS 08/05/14 [History] rOPINIRole HCL [Requip] 1 mg PO HS 08/05/14 [History] Doxycycline [Vibramycin] 50 mg PO HS 09/02/17 [History] Levothyroxine Sodium [Synthroid] 112 mcg PO HS 09/02/17 [History] NIFEdipine [Procardia XL] 60 mg PO HS 09/02/17 [History] Loratadine [Claritin] 10 mg PO DAILY tab 09/03/17 [Rx] Levofloxacin [Levaquin] 750 mg PO DAILY #5 tab 09/04/17 [Rx] Follow up Appointment(s)/Referral(s): Ana Moore DO [Primary Care Provider] - 1-2 days Leland Borges MD [STAFF PHYSICIAN] - 1 Week Discharge Disposition: HOME SELF-CARE
== END 2017-09-04 14:38 | disposition home or self-care (01) | DRG 194 ==
LOC: EC 05:32 → 6SEL 08:21 → 3SUR 13:25 → 3OBS 09-03 08:00 → OBSVTOIN 09-03 15:26
PROVIDERS: ADMIT Hospitalist; ATTEND Hospitalist
DX: J18.9 Pneumonia, unspecified organism (principal); Z68.43 Body mass index [BMI] 50.0-59.9, adult; E66.01 Morbid (severe) obesity due to excess calories; R07.89 Other chest pain; I10 Essential (primary) hypertension; E78.5 Hyperlipidemia, unspecified; E03.9 Hypothyroidism, unspecified; L71.9 Rosacea, unspecified; Z96.653 Presence of artificial knee joint, bilateral; Z79.899 Other long term (current) drug therapy; Z91.048 Other nonmedicinal substance allergy status
CPT/HCPCS: 36415; 71046; 71275; 80048; 80053; 80061; 82550; 82553; 83735; 83880; 84443; 84484; 85025; 85049; 85379; 85610; 85730; 87502; 93005; 93306; 94640; 96365; 99285

== ENCOUNTER → 2018-07-09 | Outpatient (CLI) | payer MEDICARE ==
--- NOTE | 2018-07-09 18:47 | BD ---
EXAMINATION TYPE: Axial Bone Density DATE OF EXAM: 07/09/2018 COMPARISON: 2016 CLINICAL HISTORY: 67-year-old female screening for post menopausal Height: 5 Weight: 282 FRAX RISK QUESTIONS: Secondary Osteoporosis: 3. Menopause before 45: y RISK FACTORS HISTORY OF: Active: y Postmenopausal woman: y MEDICATIONS: Thyroid Medications: Which medication: Levothyroxine How Lon years Additional Medications: blood pressure, cholesterol, zoloft, vitamin D Additional History: EXAM MEASUREMENTS: Bone mineral densitometry was performed using the [email or web address] System. Bone mineral density as measured about the Lumbar spine is: ----- L1-L4(G/cm2): 1.213 T Score Values are as follows: ----- L2: -0.7 ----- L3: -0.2 ----- L4: 2.0 ----- L1-L4:0.3 Bone mineral density has: Decreased -0.7% since study of: 09/21/2015 Bone mineral density about the R hip (g/cm2): 0.924 Bone mineral density about the L hip (g/cm2): 0.826 T Score values are as follows: -----R Neck: -0.8 -----L Neck: -1.5 -----R Total: 0.2 -----L Total: -1.0 Bone mineral density has: Decreased -2.1% since study of: 09/21/2015 IMPRESSION: Osteopenia (T Score between -2.5 and -1). There is slightly increased risk of fracture and the patient may be considered for treatment. Re-Screen 2-5 years. NOTE: T-SCORE=SD OF THE YOUNG ADULT MEAN.
--- NOTE | 2018-07-16 14:59 | MM ---
Reason for exam: screening (asymptomatic). Last mammogram was performed 2 years and 10 months ago. History: Patient is postmenopausal. Family history of breast cancer in grandmother. Benign left mammotome panel of the left breast, May 05, 2005. 2 excisional biopsies of the right breast. Took estrogen for 16 years beginning at age 32. MG 3D Screening Mammo W/Cad Bilateral CC and MLO view(s) were taken. Prior study comparison: September 21, 2015, bilateral MG 3d screening mammo w/cad. August 11, 2014, bilateral MG screening mammo w CAD. The breast tissue is heterogeneously dense. This may lower the sensitivity of mammography. There are benign-appearing bilateral calcifications. No suspicious abnormality. No significant changes when compared with prior studies. ASSESSMENT: Benign, BI-RAD 2 RECOMMENDATION: Routine screening mammogram of both breasts in 1 year.
== END | disposition home or self-care (01) ==
LOC: RADMAMWWP 13:40
PROVIDERS: ATTEND Family Medicine
DX: Z12.31 Encounter for screening mammogram for malignant neoplasm of breast (principal); M85.88 Other specified disorders of bone density and structure, other site; Z78.0 Asymptomatic menopausal state
CPT/HCPCS: 77063; 77067; 77080

== ENCOUNTER → 2018-12-06 | Outpatient (CLI) | payer MEDICARE ==
[2018-12-06 14:52] LABS: Blood Urea Nitrogen 13 mg/dL (7-17)
--- NOTE | 2018-12-06 16:26 | CT ---
EXAMINATION TYPE: CT abdomen pelvis wo/w con DATE OF EXAM: 12/06/2018 COMPARISON: None HISTORY: Pelvic pain. CT DLP: 3880.5 mGycm Automated exposure control for dose reduction was used. TECHNIQUE: Helical acquisition of images was performed from the lung bases through the pelvis. CONTRAST: Performed with Oral Contrast and without and with IV Contrast, patient injected with 100ml mL of Isov ue 300. FINDINGS: LUNG BASES: No significant abnormality is appreciated. LIVER/GB: No significant abnormality is appreciated. PANCREAS: No significant abnormality is seen. SPLEEN: No significant abnormality is seen. ADRENALS: No significant abnormality is seen. KIDNEYS: No significant abnormality is seen. FREE AIR: No free air is visualized. RETROPERITONEAL ADENOPATHY: None visualized REPRODUCTIVE ORGANS: Not seen URINARY BLADDER: No significant abnormality is seen. PELVIC ADENOPATHY: None visualized. OSSEOUS STRUCTURES: Degenerative disc changes are present in the visualized spine with facet arthrop athy change. BOWEL: Diverticular changes associated with the sigmoid colon. The cecum shows some luminal gas not mixing with the luminal contrast, there may be underlying pneumatosis or retained stool IMPRESSION: DIVERTICULOSIS. POSSIBLE PNEUMATOSIS INTESTINALIS INVOLVING THE CECUM.
== END | disposition home or self-care (01) ==
LOC: RADCTMAIN 13:39
PROVIDERS: ATTEND Family Medicine
DX: K57.90 Diverticulosis of intestine, part unspecified, without perforation or abscess without bleeding (principal); R10.2 Pelvic and perineal pain; R31.9 Hematuria, unspecified
CPT/HCPCS: 82565; 84520; 74178; 36415; Q9967

== ENCOUNTER 2021-01-25 16:30 | Emergency (ER) | payer MEDICARE ==
[2021-01-25 16:59] VITALS: BP 144/75; PULSE 71; RESP 20; TEMP 98.3
[2021-01-25] MEDS ORDERED: MORPHINE SULFATE 4 MG/ML SYRINGE IVP STA (17:13)
[2021-01-25] MEDS ORDERED: methylPREDNISolone SOD SUCCI 125 MG/2 ML VIAL IM ONE (17:13)
[2021-01-25] MEDS ORDERED: MORPHINE SULFATE 4 MG/ML SYRINGE IM STA (17:21)
--- NOTE | 2021-01-25 18:23 | XR ---
EXAMINATION TYPE: XR lumbar spine 2 or 3V DATE OF EXAM: 01/25/2021 COMPARISON: NONE HISTORY: Back pain TECHNIQUE: 3 views FINDINGS: Vertebra have normal alignment. Posterior elements are intact. There is narrowing at L4-5 a nd L5-S1 discs with spurring. Sacroiliac joints are intact. There is no compression fracture. 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 No fracture seen.
--- NOTE | 2021-01-25 18:24 | ED ---
General Adult HPI - General Chief complaint: Extremity Problem,Nontraumatic Stated complaint: right leg numbness Time Seen by Provider: 01/25/21 17:09 Source: patient, RN notes reviewed Mode of arrival: wheelchair Limitations: no limitations - History of Present Illness Initial comments: Patient is a 70-year-old female that presents to the emergency Department complaining of right leg numbness and tingling. She notes that she does have some pain in her lower back. She denied any injury or trauma to her back. She is otherwise a well-appearing well-hydrated 70-year-old female. She notes that she does tenderness it weird and that makes the pain worse. She denied any alleviating factors. She notes that walking and sitting makes the pain worse. She denied any chest pain shortness breath headache nausea vomiting diarrhea constipation fever fatigue chills. - Related Data Home Medications Medication Instructions Recorded Confirmed Sertraline HCl [Zoloft] 100 mg PO HS 08/05/14 01/25/21 Simvastatin [Zocor] 20 mg PO HS 08/05/14 01/25/21 rOPINIRole HCL [Requip] 1 mg PO HS 08/05/14 01/25/21 Levothyroxine Sodium [Synthroid] 112 mcg PO HS 09/02/17 01/25/21 NIFEdipine [Procardia XL] 60 mg PO HS 09/02/17 01/25/21 Acetaminophen Tab [Tylenol Tab] 1,000 mg PO Q6HR PRN 01/25/21 01/25/21 Naproxen Sodium [Aleve] 660 mg PO BID PRN 01/25/21 01/25/21 Allergies Allergy/AdvReac Type Severity Reaction Status Date / Time adhesive AdvReac Rash/Hives Verified 01/25/21 16:55 Review of Systems ROS Statement: Those systems with pertinent positive or pertinent negative responses have been documented in the HPI. ROS Other: All systems not noted in ROS Statement are negative. Past Medical History Past Medical History: Hypertension Additional Past Medical History / Comment(s): rosacea History of Any Multi-Drug Resistant Organisms: None Reported Past Surgical History: Appendectomy, Orthopedic Surgery, Tonsillectomy Additional Past Surgical History / Comment(s): bilateral knee replacement Past Anesthesia/Blood Transfusion Reactions: No Reported Reaction Past Psychological History: No Psychological Hx Reported Smoking Status: Never smoker Past Alcohol Use History: None Reported Past Drug Use History: None Reported - Past Family History Mother Additional Family Medical History / Comment(s): colon CA General Exam Limitations: no limitations General appearance: alert, in no apparent distress, obese Head exam: Present: atraumatic, normocephalic, normal inspection Eye exam: Present: normal appearance, PERRL, EOMI. Absent: scleral icterus, conjunctival injection, periorbital swelling Neck exam: Present: normal inspection Respiratory exam: Present: normal lung sounds bilaterally. Absent: respiratory distress, wheezes, rales, rhonchi, stridor Cardiovascular Exam: Present: regular rate, normal rhythm, normal heart sounds. Absent: systolic murmur, diastolic murmur, rubs, gallop, clicks Extremities exam: Present: normal inspection, full ROM, normal capillary refill. Absent: tenderness, pedal edema, joint swelling, calf tenderness Back exam: Present: normal inspection, tenderness (Exquisitely tender over the right SI.) Neurological exam: Present: alert, oriented X3 Psychiatric exam: Present: normal affect, normal mood Skin exam: Present: warm, dry, intact, normal color. Absent: rash Course Vital Signs 01/25/21 16:55 Temperature 98.3 F Pulse Rate 71 Respiratory 20 Rate Blood Pressure 144/75 O2 Sat by Pulse 92 L Oximetry Medical Decision Making - Medical Decision Making 70-year-old female complaining of right leg pain and right sided lower back tenderness. Given patient's clinical signs and symptoms patient most likely has sciatica with radicular symptoms to her right leg. X-ray of the lumbar spine ordered. Case discussed with Dr. Blackwell, patient can discharge home follow-up to primary care. - Radiology Data Radiology results: report reviewed, image reviewed Lumbar x-ray: Spondylitic changes in the lumbar spine. No fracture seen. Disposition Clinical Impression: Sciatica, Lumbar radiculopathy Disposition: HOME SELF-CARE Condition: Stable Instructions (If sedation given, give patient instructions): Acute Low Back Pain (ED), Back Pain (ED) Additional Instructions: Please return to the Emergency Department if symptoms worsen or any other concerns. Follow-up with primary care and potentially referral for physical therapy. Take Tylenol and Motrin as needed for pain control. Is patient prescribed a controlled substance at d/c from ED?: No Referrals: Johnie Mendes DO [Primary Care Provider] - 1-2 days Time of Disposition: 18:25
== END 2021-01-25 18:35 | disposition home or self-care (01) ==
LOC: EC 16:30
DX: M54.16 Radiculopathy, lumbar region (principal); M54.41 Lumbago with sciatica, right side; I10 Essential (primary) hypertension; E66.9 Obesity, unspecified; Z79.890 Hormone replacement therapy; Z79.899 Other long term (current) drug therapy; Z68.43 Body mass index [BMI] 50.0-59.9, adult
CPT/HCPCS: 72100; 96372 ×2; 99284; J2270; J2930

== ENCOUNTER → 2023-11-15 | Outpatient (CLI) | payer MEDICARE ==
[2023-11-15 11:54] LABS: HCT 42.1 % (34.0-46.0); HGB 13.8 gm/dL (11.4-16.0); MCH 29.1 pg (25.0-35.0); MCHC 32.7 g/dL (31.0-37.0); Platelet Count 301 k/uL (150-450); RBC 4.73 m/uL (3.80-5.40); RDW 13.9 % (11.5-15.5); WBC 10.2 k/uL (3.8-10.6)
== END | disposition home or self-care (01) ==
LOC: LABWHC1 11:11
PROVIDERS: ATTEND Family Medicine
DX: K57.92 Diverticulitis of intestine, part unspecified, without perforation or abscess without bleeding (principal)
CPT/HCPCS: 36415; 85027

== ENCOUNTER → 2024-06-16 | Outpatient (CLI) | payer MEDICARE ==
--- NOTE | 2024-06-16 14:33 | XR ---
EXAMINATION TYPE: XR thoracic spine 2V DATE OF EXAM: 06/16/2024 2:27 PM COMPARISON: None. CLINICAL INDICATION: Female, 73 years old with history of M54.12 Cervical/Radicular pain, TECHNIQUE: Frontal, lateral, and swimmer's view of thoracic spine are obtained. FINDINGS: Thoracic spine show satisfactory alignment without evidence of acute fracture or dislocatio n. Vertebral body heights are preserved. Moderate degenerative disc space narrowing with spondylosis . Visualized ribs are unremarkable. IMPRESSION: No acute fracture or dislocation is seen in the thoracic spine. ICD 10 NO FRACTURE, INIT IAL EVALUATION [facility], , 06/16/2024 2:31 PM
--- NOTE | 2024-06-16 15:18 | XR ---
EXAMINATION TYPE: XR cervical spine limited DATE OF EXAM: 06/16/2024 CLINICAL HISTORY: pain TECHNIQUE: 3 views of the cervical spine are submitted. COMPARISON: None. FINDINGS: There is satisfactory in alignment without evidence of acute fracture or dislocation. The pre-vertebral soft tissue appears within normal limits.Moderate degenerative narrowing at C5-6 with mild ventral and dorsal spondylosis. The C1-C2 articulation is unremarkable on the open mouth view. IMPRESSION: No acute fracture or dislocation is seen in the cervical spine. [facility], , 06/16/2024 3:15 PM
== END | disposition home or self-care (01) ==
LOC: RADXRMAIN 13:59
PROVIDERS: ATTEND Family Medicine
DX: M47.22 Other spondylosis with radiculopathy, cervical region (principal)
CPT/HCPCS: 72040; 72070